=== PATIENT | female | born 1970 | race Caucasian/White ===

== ENCOUNTER 2017-04-20 07:46 | Emergency (ER) | payer OTHER ==
[2017-04-20 08:00] VITALS: BP 113/63
--- NOTE | 2017-04-20 08:00 | UC ---
Complaint Female HPI - HPI Summary HPI Summary: 47 YEAR OLD FEMALE PRESENTS DYSURIA, BACK PAIN AND FREQUENT URINATION. - History Of Current Complaint Stated Complaint: URINARY Time Seen by Provider: 04/20/17 07:59 Onset/Duration: Sudden Onset Timing: Constant Severity Initially: Moderate Severity Currently: Moderate - Allergies/Home Medications Allergies/Adverse Reactions: Allergies Allergy/AdvReac Type Severity Reaction Status Date / Time Sulfa Antibiotics Allergy Anaphylatic Verified 04/20/17 07:52 Shock Home Medications: Home Medications Gabapentin CAP(*) [Neurontin 400 mg CAP(*)] 800 mg PO TID 04/20/17 [History Confirmed 04/20/17] Ibuprofen [Advil] 800 mg PO ONCE PRN 04/20/17 [History Confirmed 04/20/17] Levonorgestrel-Ethinyl Estradi [Seasonique 0.15-0.03 &0.01 mg] 1 tab PO DAILY [History Confirmed 04/20/17] Phenazopyridine HCl [Azo Urinary Pain Relief] 95 mg PO ONCE PRN 04/20/17 [ History Confirmed 04/20/17] Sertraline* [Zoloft*] 100 mg PO DAILY 04/20/17 [History Confirmed 04/20/17] Review of Systems Constitutional: Negative Skin: Negative Eyes: Negative ENT: Negative Respiratory: Negative Cardiovascular: Negative Gastrointestinal: Negative Genitourinary: Dysuria, Frequency, Urgency Motor: Negative Neurovascular: Negative Musculoskeletal: Negative Neurological: Negative Psychological: Negative All Other Systems Reviewed And Are Negative: Yes Physical Exam Triage Information Reviewed: Yes Eye Exam: Normal ENT Exam: Normal Dental Exam: Normal Neck exam: Normal Neck: Positive: 1 Respiratory Exam: Normal Cardiovascular Exam: Normal Abdominal Exam: Normal Musculoskeletal Exam: Normal Neurological Exam: Normal Psychological Exam: Normal Skin Exam: Normal Complaint Female Dx - Differential Dx/Diagnosis Provider Diagnoses: UTI Discharge - Discharge Plan Condition: Stable Disposition: HOME Prescriptions: Ciprofloxacin HCl [Cipro 500 MG TAB] 500 mg PO BID #14 tab Patient Education Materials: Urinary Tract Infection in Women (ED) Forms: *Work Release Referrals: Flavia JESUS,Tank Lindo [Primary Care Provider] -
[2017-04-20 14:32] LABS: Urine Bacteria Absent (Absent); Urine Bilirubin Negative (Negative); Urine Glucose Negative (Negative); Urine Nitrite Positive (Negative)
--- NOTE | 2017-04-22 06:52 | ED ---
Progress - Progress Note Progress Note: UCX (-), STOP ABX. THANKS LORENA Course/Dx - Diagnoses Provider Diagnoses: Dysuria
== END 2017-04-20 08:31 | disposition home or self-care (01) ==
LOC: UCCORT 07:46
DX: N39.0 Urinary tract infection, site not specified (principal)
CPT/HCPCS: 81003; 81015; 84702; 87086; 99202; G0463

== ENCOUNTER 2018-03-26 07:39 | Emergency (ER) | payer OTHER ==
[2018-03-26 07:51] VITALS: BP 129/95
--- NOTE | 2018-03-26 08:34 | UC ---
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 Worse with certain movements. Better with rest. Hurts to sleep on that side. No neck pain, numbness or weakness. No fever or chills. - History of Current Complaint Chief Complaint: UCGeneralIllness Stated Complaint: RIGHT ARM/SHOULDER PAIN Time Seen by Provider: 03/26/18 08:16 Hx Obtained From: Patient Hx Last Menstrual Period: Seasonique ?: No Onset/Duration: Gradual Onset, Lasting Weeks Severity Initially: Moderate Severity Currently: Moderate Pain Intensity: 3 Location Of Pain: Is Diffuse Character: Sharp, Aching Aggravating Factor(s): Movement, Lifting, Internal/External Rotation, Abduction Alleviating Factor(s): Rest Associated Signs And Symptoms: Positive: Negative Related History: Dominant Hand Right - Allergies/Home Medications Allergies/Adverse Reactions: Allergies Allergy/AdvReac Type Severity Reaction Status Date / Time Sulfa (Sulfonamide Allergy Severe Anaphylatic Verified 03/26/18 07:42 Antibiotics) Shock PMH/Surg Hx/FS Hx/Imm Hx Previously Healthy: No - trigeminal neuralgia. - Surgical History Surgical History: Yes Surgery Procedure, Year, and Place: [place]. hernia. gamma knife - Family History Known Family History: Positive: Other - no fh of related shoulder disease. - Social History Occupation: Employed Full-time Alcohol Use: Occasionally Substance Use Type: None Smoking Status (MU): Former Smoker When Did the Patient Quit Smoking/Using Tobacco: 25 years ago Review of Systems Musculoskeletal: Arthralgia All Other Systems Reviewed And Are Negative: Yes Physical Exam Triage Information Reviewed: Yes Appearance: Well-Appearing, No Pain Distress, Obese Vital Signs: Initial Vital Signs Temp 97.8 F 03/26/18 07:45 Pulse 74 03/26/18 07:45 Resp 18 03/26/18 07:45 BP 129/95 03/26/18 07:45 Pulse Ox 97 03/26/18 07:45 Vital Signs Reviewed: Yes Eyes: Positive: Conjunctiva Clear ENT: Positive: Normal ENT inspection Neck: Positive: Supple, Nontender, No Lymphadenopathy. Negative: Nuchal Rigidity Respiratory: Negative: Respiratory distress, Accessory muscle use Cardiovascular: Positive: Brisk Capillary Refill Abdomen Description: Positive: Soft. Negative: Distended, Guarding Musculoskeletal Exam: Other - Neg spurling and no spine percussion tenderness or pain. No shoulder tenderness. Full rom with some pain with NFL touchdown. There is pain without loss of strength with lateral abduction, empty can and lateral rotation. There is some pain with biceps flexion and wrist pronation and suppination. Neg wing neer. Neurological: Positive: Alert, Muscle Tone Normal. Negative: Fatigued Psychological: Positive: Age Appropriate Behavior Skin: Negative: rashes Upper Extremity Course/Dx - Differential Dx/Diagnosis Provider Diagnoses: right rotator cuff pain Discharge - Sign-Out/Discharge Documenting (check all that apply): Discharge/Admit/Transfer - Discharge Plan Condition: Good Disposition: HOME Prescriptions: Naproxen [Naproxen 500 mg tab] 500 mg PO BID PRN #30 tablet PRN Reason: Pain Patient Education Materials: Rotator Cuff Injury (ED), Rotator Cuff Tendinitis (ED) Referrals: Placido Mejia MD [Medical Doctor] - Flavia JESUS,Tank Lindo [Primary Care Provider] - Additional Instructions: Ice and physical therapy to start. - Billing Disposition and Condition Condition: GOOD Disposition: Home
== END 2018-03-26 08:34 | disposition home or self-care (01) ==
LOC: UCCORT 07:39
DX: M25.511 Pain in right shoulder (principal); Z88.2 Allergy status to sulfonamides; Z87.891 Personal history of nicotine dependence
CPT/HCPCS: 99212; G0463

== ENCOUNTER 2018-09-07 10:15 | Emergency (ER) | payer OTHER ==
[2018-09-07 11:35] VITALS: BP 119/75
--- NOTE | 2018-09-07 11:55 | UC ---
UC General HPI - HPI Summary HPI Summary: pt c/o pain in her R back/flank area that radiates into her R side x 3 days. has become constant. + nausea. + frequent-urgent urination but no burning.no change with oral intake plus s/p gallbladder removal. no hx kidney stones but has had pyelonephritis and this seems a little similar. -V/D. - History of Current Complaint Chief Complaint: UCGU Stated Complaint: URINARY W/BACK PAIN Time Seen by Provider: 09/07/18 11:47 Hx Obtained From: Patient Hx Last Menstrual Period: none since February 2018, went off B/C Onset/Duration: Gradual Onset Timing: Constant Pain Intensity: 5 Associated Signs & Symptoms: Positive: Abdominal Pain, Dysuria. Negative: Diarrhea, Fever, Nausea, Vomiting - Allergy/Home Medications Allergies/Adverse Reactions: Allergies Allergy/AdvReac Type Severity Reaction Status Date / Time Sulfa (Sulfonamide Allergy Severe Anaphylatic Verified 09/07/18 11:35 Antibiotics) Shock Home Medications: Home Medications Hydrocodone/Acetaminophen [Hydrocodone/Acetaminophen 5-325 mg] 1 tab PO Q6HR PRN 09/07/18 [History Confirmed 09/07/18] PMH/Surg Hx/FS Hx/Imm Hx - Additional Past Medical History Additional PMH: trigeminal neuralgia, uti, migraines, pyelonephritis - Surgical History Surgical History: Yes Surgery Procedure, Year, and Place: [place]. hernia. gamma knife - Family History Known Family History: Positive: Other - no fh of related shoulder disease. - Social History Lives: With Family Alcohol Use: Weekly Substance Use Type: None Smoking Status (MU): Former Smoker When Did the Patient Quit Smoking/Using Tobacco: 25 years ago Review of Systems All Other Systems Reviewed And Are Negative: Yes Constitutional: Positive: Negative Skin: Positive: Negative Eyes: Positive: Negative ENT: Positive: Negative Respiratory: Positive: Negative Cardiovascular: Positive: Negative Gastrointestinal: Positive: Negative Genitourinary: Positive: Negative Motor: Positive: Negative Neurovascular: Positive: Negative Musculoskeletal: Positive: Negative Neurological: Positive: Negative Psychological: Positive: Negative Is Patient Immunocompromised?: No Physical Exam Triage Information Reviewed: Yes Appearance: Well-Appearing Vital Signs: Initial Vital Signs Temp 97.9 F 09/07/18 11:26 Pulse 78 09/07/18 11:26 Resp 16 09/07/18 11:26 BP 119/75 09/07/18 11:26 Pulse Ox 99 09/07/18 11:26 Vital Signs Reviewed: Yes Eyes: Positive: Conjunctiva Clear ENT: Positive: Pharynx normal, TMs normal. Negative: Nasal congestion, Nasal drainage Neck: Positive: Supple, Nontender, No Lymphadenopathy Respiratory: Positive: Lungs clear, Normal breath sounds Cardiovascular: Positive: RRR, No Murmur Abdomen Description: Positive: No Organomegaly, Soft, CVA Tenderness (R). Negative: CVA Tenderness (L), Distended, Guarding, Peritoneal Signs, Pulsatile Mass Bowel Sounds: Positive: Present Musculoskeletal: Positive: ROM Intact Neurological: Positive: Alert Psychological: Positive: Age Appropriate Behavior Skin Exam: Normal Diagnostics - Laboratory Diagnostic Studies Completed/Ordered: u/a=not done, on pyridium. urine culture pending. hcg=neg - Radiology No standard instances Radiology Interpretation Completed By: Radiologist - CT abd/pelvis=Negative for urolithiasis or hydronephrosis. #. Distended urinary bladder without suspicious finding. Correlate for urinary retention. #. Normal appendix documented. #. Post cholecystectomy likely accounting for prominent common bile duct measuring up to 1.1 cm diameter given absence of conspicuous stones or obstructing lesion. Re-Evaluation - Re-Evaluation First Eval Re-Evaluation Time: 13:24 Change: Unchanged - case d/w dr kapoor. additional exam: no saddle anesathesia. 5/5 strength, 2+ reflexes and sensation intactx4. : inspection shows no external lesions. pt attempted to urinate post CT with no success. will place [place] to assess for urinary rtention. Course/Dx - Course Course Of Treatment: Nursing placed straight cath and drained 500cc urine. cath not inflatable plus pt refusing to keep it in. will discontinue bladder medications, tx with keflex and have pt f/u with Dr Rodriges(her urologist from [facility]) in am. Pt advised go to ER for any fever or worsening. will cover for possible urinary infection. no concern for cauda equina/neurogenic bladder. possible medication side effect. - Differential Dx - Multi-Symptom Provider Diagnoses: R flank pain, urinary retention 500ml, urinary frequency. Discharge - Sign-Out/Discharge Documenting (check all that apply): Patient Departure All imaging exams completed and their final reports reviewed: Yes - Discharge Plan Condition: Stable Disposition: HOME Prescriptions: Cephalexin CAP* [Keflex CAP*] 500 mg PO TID 10 Days #30 cap Patient Education Materials: Acute Urinary Retention in Women (ED), Flank Pain (ED), Urinary Urgency and Frequency (DC) Referrals: Flavia JESUS,Tank Lindo [Primary Care Provider] - Additional Instructions: STOP AZO, PYRIDIUM AND URIBEL. DO NOT RESUME UNTIL CLEARED BY YOUR UROLOGIST. FOLLOW UP DR RODRIGES, YOUR UROLOGIST FROM [facility] IN THE AM. GO TO THE ER FOR ANY WORSENING. - Billing Disposition and Condition Condition: STABLE Disposition: Home
== END 2018-09-07 14:38 | disposition home or self-care (01) ==
LOC: UCCORT 10:15
DX: R10.9 Unspecified abdominal pain (principal); R33.9 Retention of urine, unspecified; R35.0 Frequency of micturition; Z88.1 Allergy status to other antibiotic agents
CPT/HCPCS: 74176; 84702; 87086; 99212; G0463